=== PATIENT | female | born 1945 | race Caucasian/White ===

== ENCOUNTER 2018-04-20 05:12 | Inpatient (IN) | payer MEDICARE ==
[2018-04-20] MEDS ORDERED: diphenhydrAMINE 50 MG/ML VIAL ONE (05:30)
[2018-04-20] MEDS ORDERED: methylPREDNISolone Sod Succ/PF 125 MG/2 ML VIAL ONE (05:30)
[2018-04-20] MEDS ORDERED: Famotidine/PF 20 mg/2ml Vial ONE (05:31)
[2018-04-20] MEDS ORDERED: Propofol 1,000 MG/100 ML VIAL IV ONE (05:41)
[2018-04-20 06:06] LABS: #Basophils 0.1 thou/uL (0.0-0.2); #Eosinphils 0.2 thou/uL (0.0-0.7); #Lymphocytes 1.8 thou/uL (1.20-3.40); #Monocytes 0.5 thou/uL (0.11-0.59); #Neutrophils 3.6 thou/uL (1.40-6.50); %Eosinophils 2.9 % (0.0-10.0); %Monocytes 8.7 % (0.0-10.0); %Neutrophils 58.5 % (42.0-75.0); Hemoglobin 13.3 g/dL (12.0-16.0); Mean Corpuscular HGB CONC 32.7 g/dL (32.0-36.0); Mean Corpuscular Hemoglobin 30.5 pg (27.0-31.0); Mean Corpuscular Volume 93.2 fL (78.0-98.0); Mean Platelet Volume 7.1 fL (7.4-10.4); Platelet Count 240 thou/uL (130-400); RBC Distribution Width 12.7 % (11.5-14.5); Red Blood Cell (RBC) Count 4.34 mill/uL (4.20-5.40); White Blood Cell (WBC) Count 6.2 thou/uL (4.8-10.8)
[2018-04-20] MEDS ORDERED: CCU Electrolyte Replacement 1 EACH IVPB ONE (06:14)
[2018-04-20] MEDS ORDERED: Nitroglycerin 50 MG/250 ML BOT 250 ML IVPB PRN (06:14)
[2018-04-20] MEDS ORDERED: Norepinephrine 8 MG/0.9% NS 250 ML IVPB PRN (06:14)
[2018-04-20 06:15] LABS: ALT (SGPT) 23 U/L (8-55); AST (SGOT) 26 U/L (5-34); Albumin 4.5 g/dL (3.4-4.8); Alkaline Phosphatase 83 U/L (40-150); Anion Gap 15 mmol/L (10-20); BUN (Urea Nitrogen) 28 mg/dL (9.8-20.1); Bilirubin, Total 0.6 mg/dL (0.2-1.2); Calc. Creatinine Clearance 0 mL/min (70-130); Calcium 9.7 mg/dL (7.8-10.44); Carbon Dioxide 23 mmol/L (23-31); Chloride 104 mmol/L (98-107); Estimated GFR-MDRD 34; Globulin 3.8 g/dL (2.4-3.5); Glucose 118 mg/dL (83-110); Potassium 4.6 mmol/L (3.5-5.1); Protein, Total 8.3 g/dL (6.0-8.3); Sodium 137 mmol/L (136-145)
[2018-04-20] MEDS ORDERED: Ventilator Sedation Protocol 1 EACH FS SCH (06:15)
[2018-04-20 06:19] LABS: Actual Bicarbonate (HCO3a) 20.2 mEq/L (22-28); Analyzer IN Cardio ER; Base Excess (BEa) -3.4 mEq/L (-2.0 to +3.0); CO2 Tension 32.1 mmHg (35.0-45.0); Calcium, Ionized 1.13 mmol/L (1.12-1.30); Carboxyhemoglobin (COHb) 3.4 gm% (0.0-3.0); Hemoglobin (Hb) 13.1 g/dL (12.0-16.0); O2 Tension (PaO2) 126.7 mmHg (> 70.0); Potassium - ABG Lab 3.91 mmol/L (3.70-5.30); pH, Arterial 7.42 (7.35-7.45)
[2018-04-20 06:25] LABS: ALV-art Gradient 118.375 (0-20); Puncture Site LRA
[2018-04-20] MEDS ORDERED: Fentanyl BOLUS 250 ML IVPB PRN (06:27)
[2018-04-20] MEDS ORDERED: Lorazepam 2 MG/ML VIAL SLOW IVP PRN (06:27)
[2018-04-20] MEDS ORDERED: Potassium Phosphate 12 MMOL in Sodium Chloride 0.9% 250 ML 250 ML IV PRN (06:27)
[2018-04-20] MEDS ORDERED: fentaNYL Citrate/PF 2,000 MCG in Sodium Chloride 0.9% 60 ML IV SCH (06:27)
[2018-04-20] MEDS ORDERED: Potassium Phosphate 15 MMOL in Sodium Chloride 0.9% 250 ML 250 ML IV PRN (06:27)
[2018-04-20] MEDS ORDERED: Potassium Phosphate 9 MMOL in Sodium Chloride 0.9% 100 ML IVPB PRN (06:27)
[2018-04-20] MEDS ORDERED: DISCONTINUE PREVIOUS NARCOTIC PAIN MEDICATIONS AND BENZODIAZEPINES FS SCH (06:27)
[2018-04-20] MEDS ORDERED: Propofol BOLUS 1,000 MG/100 ML VIAL IV PRN (06:27)
[2018-04-20] MEDS ORDERED: Potassium Chloride 20 MEQ TAB PO PRN (06:27)
[2018-04-20] MEDS ORDERED: CCU ELECTROLYTE REPLACEMENT PROTOCOL FS PRN (06:27)
[2018-04-20] MEDS ORDERED: Magnesium Oxide 400 MG TAB PO PRN ×2 (06:27)
[2018-04-20] MEDS ORDERED: Potassium Chloride 40 MEQ in Premix Bag 1 BAG IVPB PRN (06:27)
[2018-04-20] MEDS ORDERED: Magnesium 2 GM/NS 0.9% 100 ML 2 GM in Premix Bag 1 BAG IVPB PRN (06:27)
[2018-04-20] MEDS ORDERED: Potassium Chloride 40 MEQ in Sodium Chloride 0.9% 250 ML 250 ML IVPB PRN (06:27)
[2018-04-20] MEDS ORDERED: Lorazepam 2 MG/ML VIAL ONE (07:18)
[2018-04-20] MEDS: Sodium Chloride 0.9% 1,000 ML IV SCH ×3 (07:54→21:14)
[2018-04-20] MEDS: Propofol 1,000 MG/100 ML VIAL IV PRN (07:55)
--- NOTE | 2018-04-20 08:21 | RAD ---
CHEST 1 VIEW: HISTORY: Dyspnea. FINDINGS: No comparison. Cardiac silhouette is magnified by projection. Pulmonary vasculature is slightly eng orged with patchy bibasilar infiltrates. The patient is slightly rotated leftward. The tip of an en dotracheal catheter overlies the thoracic inlet. Nasogastric tube descends to the abdomen. No evide nce of pneumothorax. IMPRESSION: 1. Mild bibasilar infiltrates favored to be related to pulmonary vascular congestion. 2. Endotracheal catheter is in good radiographic position. POS: DAYA
[2018-04-20] MEDS ORDERED: diphenhydrAMINE 25 MG in Sodium Chloride 0.9% 50 ML IVPB SCH (08:45)
[2018-04-20] MEDS: fentaNYL Citrate/PF 2,000 MCG in Sodium Chloride 0.9% 60 ML IV SCH (08:48)
[2018-04-20] MEDS ORDERED: Famotidine/PF 20 mg/2ml Vial SLOW IVP SCH (09:00)
--- NOTE | 2018-04-20 09:36 | CON ---
DATE OF CONSULTATION: 04/20/2018 HISTORY: This is a 2-year-old female who came to the ER yesterday apparently from [place] and was fou nd to have angioedema. She told the ER doctor she had some wasp stings yesterday. Tongue was marked ly swollen. They gave her 1 unit of FFP in the ER, she was intubated for progressive respiratory maxine lure as per the ER note requiring paralytics. She is presently agitated on Diprivan. We are about t o initiate fentanyl. No additional family members. She has a blood pressure medication which includ es lisinopril from Dr. Reta Talbert. We are trying to contact the pharmacy, they may have some addition al information on where she lives and family members. PAST MEDICAL HISTORY: Apparently pertinent for what sounds like hypertension. PAST SURGICAL HISTORY: Apparently have included a perforated ulcer that she has a laparotomy scar. Otherwise, no additional information. No history of tobacco abuse, alcohol abuse obtainable at this stage. REVIEW OF SYSTEMS: Unobtainable. PHYSICAL EXAMINATION: GENERAL: Sedated. Tongue is protruding from the mouth. VITAL SIGNS: Pulse 73, blood pressure 90/43, sats are 96%, respirations 14. CHEST: Decreased breath sounds, no wheezing. CARDIAC: Normal S1, S2. No gallops. ABDOMEN: Soft, no masses. LABORATORY AND X-RAY FINDINGS: Chest x-ray on admission was normal. PO2 is 126, pCO2 31.42, rate of 20, 40%. Total creatinine 1.49. IMPRESSION: 1. Patient is status post angioedema NICOLE related. I doubt this is secondary to wasp sting. That wo uld cause generalized angioedema, not just localized to the mouth and tongue. 2. Hypertension. 3. Renal failure. PLAN: Pepcid and Decadron will be initiated. Continue vent support, wean when angioedema resolves. 45 minutes critical care time.
[2018-04-20] MEDS: Enoxaparin Sodium 40 MG/0.4 ML SYRINGE SC SCH (09:52)
[2018-04-20] MEDS: Famotidine/PF 20 mg/2ml Vial SLOW IVP SCH ×2 (09:53→21:15)
[2018-04-20] MEDS: diphenhydrAMINE 12.5 MG/5 ML UDCUP PER TUBE SCH ×4 (10:17→21:15)
--- NOTE | 2018-04-20 11:41 | HP ---
DATE OF ADMISSION: 04/20/2018 PRIMARY CARE PHYSICIAN: Chelsie Jackson. CHIEF COMPLAINT: Tongue swelling. HISTORY OF PRESENTING ILLNESS: Ms. Landa is a 73-year-old female with past medical history of hyper tension who presented to the emergency room yesterday evening for complaints of swelling of the tongu e. History is mainly obtained by the chart review as the patient is currently intubated and no famil y is at bedside. Electronic medical records have been reviewed. According to the ER report, the patient came to the emergency room with swelling of the tongue. She reported that a wasp has bitten her 3:30 yesterday morning. She also reported taking lisinopril. Sh e reported that her tongue swelling has started and progressively is getting worse. She denies any f ever or chills to the ER physician. On presentation, she was hemodynamically stable with a blood pressure of 173/91 and oxygen saturation of 97% on room air, not showing any signs and symptoms of respiratory compromise initially she was g iven; however, in the emergency room, she reported worsening of the tongue swelling and the decision was made to intubate her empirically to avoid any respiratory compromise after the patient gave conse nt. She was intubated and sedated and paralyzed and is now being admitted to Critical Care Unit for further evaluation and care. Please note that the patient has been given 1 unit of FFP in the ER. PAST MEDICAL HISTORY: Hypertension. PAST SURGICAL HISTORY: History of perforated ulcer surgery. PSYCHIATRIC HISTORY: None. SOCIAL HISTORY: The patient denied any drug, tobacco or alcohol abuse prior to intubation. FAMILY HISTORY: Unobtainable as the patient is currently intubated and sedated. ALLERGIES: Listed as LISINOPRIL causing angioedema for the patient. I am not aware if this was done yesterday or she has a known history of allergy to LISINOPRIL in the past. CURRENT MEDICATIONS: Lisinopril. The patient has prescriptions not filled for amlodipine and metopr olol since July of this year. REVIEW OF SYSTEMS: Unobtainable as the patient is currently intubated and sedated. LABORATORY DATA AND IMAGING DATA: CBC is unremarkable. Serum chemistry shows BUN of 28, creatinine 1.49, blood sugar 118. ABGs after intubation showed pH of 7.42, pCO2 of 32, pO2 126. Chest x-ray by my review has no evidence to suggest any acute cardiopulmonary abnormality. Mild bibasilar infiltra héctor seen, however. Endotracheal tube is in good position. PHYSICAL EXAMINATION: VITAL SIGNS: Most recent vital signs; temperature 98.2, heart rate 82, blood pressure 103/55, satura ting 98% on ventilator. GENERAL: No acute distress. She is calm and sedated. HEENT: Examination show extreme swelling of her tongue, which is protruding out of her mouth. Pupil s are pinpoint and reactive to light bilaterally. Head is normocephalic, atraumatic. Sclera is anic teric. NECK: Supple without any lymphadenopathy, JVD or bruit. CHEST: Clear to auscultation without any wheezing, rales or rhonchi. Rate and rhythm is regular wit hout any murmur, rubs or gallops. ABDOMEN: Soft, nontender, nondistended with positive bowel sounds. EXTREMITIES: Free of any cyanosis, clubbing, or edema. NEUROLOGIC: Limited because of the sedated stage. IMPRESSION AND PLAN: 1. Swelling of the tongue at this time anaphylaxis due to wasp sting with or without angioedema whic h is age related is suspected. One or the other cannot be ruled out. She will be treated with H1 an tihistamines as well as Benadryl and steroids. She has received 50 mg of IV Benadryl and 20 mg of IV Pepcid with 125 mg of Solu-Medrol in the emergency room. I have been told by the pharmacy that we d o not have any IV Benadryl, so oral Benadryl rather tube by the Dobbhoff tube is initiated. She will be intubated until she can be safely extubated without respiratory compromise. Vent management as p er Pulmonary Critical Care team while she is in the CCU. She sees electrolyte protocol will be insti tuted. Continue on intravenous fluids. 2. Deep venous thrombosis and gastrointestinal prophylaxis. 3. Hypertension. Add p.r.n. antihypertensives. 4. Deep venous thrombosis and gastrointestinal prophylaxis. DISPOSITION: Mr. Landa is being admitted to the CCU for tongue swelling likely angioedema versus an aphylaxis versus both as above. Estimated length of stay is at least 2-3 midnights. Further managem ent will depend upon her clinical course. Please note that no family is available at bedside and emre sammy have tried to contact the family, but all of the numbers they have tried are either incorrect or they have not received any answer.
[2018-04-20] MEDS: Dexamethasone 4 mg/ml Vial SLOW IVP SCH ×2 (12:47→17:13)
[2018-04-21] MEDS: Dexamethasone 4 mg/ml Vial SLOW IVP SCH ×2 (00:31→06:34)
[2018-04-21] MEDS: fentaNYL Citrate/PF 2,000 MCG in Sodium Chloride 0.9% 60 ML IV SCH (03:30)
[2018-04-21] MEDS: Propofol 1,000 MG/100 ML VIAL IV PRN (03:35)
[2018-04-21 08:42] LABS: Actual Bicarbonate (HCO3a) 23.7 mEq/L (22-28); Base Excess (BEa) -2.9 mEq/L (-2.0 to +3.0); CO2 Tension 48.5 mmHg (35.0-45.0); Calcium, Ionized 1.15 mmol/L (1.12-1.30); Carboxyhemoglobin (COHb) 0.8 gm% (0.0-3.0); Hemoglobin (Hb) 12.8 g/dL (12.0-16.0); O2 Tension (PaO2) 92.2 mmHg (> 70.0); Potassium - ABG Lab 4.39 mmol/L (3.70-5.30); pH, Arterial 7.31 (7.35-7.45)
[2018-04-21] MEDS: Sodium Chloride 0.9% 1,000 ML IV SCH (08:47)
[2018-04-21] MEDS: Famotidine/PF 20 mg/2ml Vial SLOW IVP SCH (08:47)
[2018-04-21] MEDS: Enoxaparin Sodium 40 MG/0.4 ML SYRINGE SC SCH (08:47)
[2018-04-21 08:49] LABS: ALV-art Gradient 132.375 (0-20); Puncture Site RBA
[2018-04-21] MEDS ORDERED: DC Sedation Protocol FS ONE (09:01)
--- NOTE | 2018-04-21 11:16 | PRG ---
DATE OF SERVICE: 04/21/2018 SUBJECTIVE: Ms. Landa this morning is awake, alert, and responsive. Tongue is markedly less swolle n. PHYSICAL EXAMINATION: VITAL SIGNS: Blood pressure 107/65, pulse rate of . She has got a small air leak when the cuff is down. She is afebrile. MUSCULOSKELETAL: She moves all 4 extremities. CHEST: No wheezing or stridor. CARDIAC: Normal S1, S2, no gallops, no masses. LABORATORY DATA: PO2 is 92, pCO2 47 . IMPRESSION: Respiratory failure, angioedema, hypertension, history of bee sting. PLAN: Wean and extubate today. Continue observation in the ICU for another 24 hours. PT, supportive care and nutrition. One-half hour critical care time.
[2018-04-21] MEDS ORDERED: Nicotine 21 MG PATCH TD SCH (12:00)
--- NOTE | 2018-04-21 16:50 | PDOC.PN ---
- Subjective Encounter Start Date: 04/21/18 Encounter Start Time: 10:20 Pt seen for followup re: anaphylaxis. Intubated, unable to complete ROS. - Objective MAR Reviewed: Yes Vital Signs & Weight: Vital Signs (12 hours) Temp Pulse Resp BP BP Pulse Ox 04/21/18 12:55 97 04/21/18 12:52 98.5 F 77 20 177/78 H 97 04/21/18 12:00 97 04/21/18 09:00 78 19 93 L 04/21/18 08:23 75 107/64 04/21/18 08:00 16 98 04/21/18 07:00 98.7 F 04/21/18 06:00 10 L Weight Admit Weight 211 lb 3.245 oz Weight 209 lb 14.081 oz Most Recent Monitor Data Heart Rate from ECG 78 NIBP 178/88 NIBP BP-Mean 118 Respiration from ECG 17 SpO2 96 I&O: 04/20/18 04/21/18 04/22/18 06:59 06:59 06:59 Intake Total 2375.7 25.2 Output Total 1330 185 Balance 1045.7 -159.8 Result Diagrams: 04/20/18 05:27 04/20/18 05:27 EKG Reviewed by me: Yes (Tele: NSR) Phys Exam - Physical Examination Obese HEENT: moist MMs ETT Respiratory: clear to auscultation bilateral Cardiovascular: RRR Gastrointestinal: soft Neurological: moves all 4 limbs Deviation from normal: Unable to assess Dx/Plan (1) Anaphylaxis Code(s): T78.2XXA - ANAPHYLACTIC SHOCK, UNSPECIFIED, INITIAL ENCOUNTER Status : Acute Comment: anaphylaxis vs angioedema. Currently on H1 and H2 blockers and steroids. (2) Tobacco abuse Code(s): Z72.0 - TOBACCO USE Status: Chronic (3) SAMPSON (acute kidney injury) Code(s): N17.9 - ACUTE KIDNEY FAILURE, UNSPECIFIED Status: Acute Comment: recheck creatinine in AM (4) HTN (hypertension) Code(s): I10 - ESSENTIAL (PRIMARY) HYPERTENSION Status: Chronic Comment: Resume home medications except for lisinopril, monitor vital signs and titrate antihypertensives as needed. - Plan * . Review of Systems - Medications/Allergies Allergies/Adverse Reactions: Allergies Allergy/AdvReac Type Severity Reaction Status Date / Time lisinopril Allergy Verified 04/20/18 06:07 Medications: Current Medications Enoxaparin Sodium (Lovenox) 40 mg SC 0900 JUAN C Last Admin: 04/21/18 08:47 Dose: Not Given Norepinephrine Bitartrate (Levophed) 250 mls @ 0 mls/hr IVPB PRN PRN; Protocol PRN Reason: To maintain MAP > 65 Nitroglycerin/Dextrose (Nitroglycerin 50 Mg/250 Ml Bot) 250 mls @ 0 mls/hr IVPB PRN PRN; Protocol PRN Reason: To maintain SBP < 140 Potassium Chloride 40 meq/ (Sodium Chloride) 270 mls @ 135 mls/hr IVPB ASDIR PRN PRN Reason: FOR SERUM K+ 2.5 - 3.5 Potassium Chloride 40 meq/ (Device) 100 mls @ 50 mls/hr IVPB ASDIR PRN PRN Reason: FOR SERUM K+ 2.5 - 3.5 Magnesium Sulfate 1 gm/ Sodium (Chloride) 102 mls @ 102 mls/hr IV PRN PRN PRN Reason: MAG LEVEL 1.4 - 2.0 Magnesium Sulfate 2 gm/ Device 100 mls @ 100 mls/hr IVPB ASDIR PRN PRN Reason: MAGNESIUM < 1.4 Potassium Phosphate 9 mmol/ (Sodium Chloride) 103 mls @ 25.75 mls/hr IVPB ASDIR PRN PRN Reason: Phosphate 1.0-1.8 Potassium Phosphate 12 mmol/ (Sodium Chloride) 254 mls @ 63.5 mls/hr IV ASDIR PRN PRN Reason: Serum phosphate 0.5-0.9 Potassium Phosphate 15 mmol/ (Sodium Chloride) 255 mls @ 63.75 mls/hr IV ASDIR PRN PRN Reason: Serum Phos < 0.5 Magnesium Oxide (Magnesium Oxide) 400 mg PO BIDPRN PRN PRN Reason: FOR SERUM MAG 1.4 - 2.0 Magnesium Oxide (Magnesium Oxide) 800 mg PO PRN PRN PRN Reason: FOR SERUM MAG < 1.4 Miscellaneous Medication (Phos-Nak) 1 pkt PO TIDPRN PRN PRN Reason: FOR PHOS LEVEL 1.0 - 1.8 Miscellaneous Medication (Phos-Nak) 2 pkt PO TIDPRN PRN PRN Reason: FOR PHOS LEVEL 0.5 - 1.0 Nicotine (Nicoderm Patch) 21 mg TD 1200 [facility] Last Admin: 04/21/18 12:29 Dose: 21 mg Ccu Electrolyte (Replacement Protocol) 0 each FS PRN PRN PRN Reason: FOR ELECTROLYTE REPLACEMENT Potassium Chloride (K-Dur) 40 meq PO ASDIR PRN PRN Reason: FOR SERUM K+ 2.5 - 3.5 Potassium Chloride (Klor-Con) 40 meq PER TUBE ASDIR PRN PRN Reason: FOR SERUM K+ 2.5-3.5 Sodium Chloride (Flush - Normal Saline) 10 ml IVF Q12HR [facility] Last Admin: 04/21/18 08:48 Dose: 10 ml Sodium Chloride (Flush - Normal Saline) 10 ml IVF PRN PRN PRN Reason: Saline Flush Last Admin: 04/21/18 06:36 Dose: 10 ml
[2018-04-21] MEDS ORDERED: cloNIDine 0.1 MG TAB PO PRN (16:52)
[2018-04-21] MEDS: Metoprolol Tartrate 50 MG TAB PO SCH (19:12)
[2018-04-22 04:50] LABS: #Basophils 0.1 thou/uL (0.0-0.2); #Eosinphils 0.1 thou/uL (0.0-0.7); #Monocytes 0.9 thou/uL (0.11-0.59); #Neutrophils 7.8 thou/uL (1.40-6.50); %Basophils 0.6 % (0.0-1.0); %Eosinophils 0.5 % (0.0-10.0); %Lymphocytes 18.9 % (21.0-51.0); %Monocytes 8.1 % (0.0-10.0); %Neutrophils 71.9 % (42.0-75.0); Hemoglobin 11.5 g/dL (12.0-16.0); Mean Corpuscular HGB CONC 33.1 g/dL (32.0-36.0); Mean Corpuscular Hemoglobin 30.8 pg (27.0-31.0); Mean Corpuscular Volume 92.9 fL (78.0-98.0); Platelet Count 185 thou/uL (130-400); RBC Distribution Width 12.6 % (11.5-14.5); Red Blood Cell (RBC) Count 3.74 mill/uL (4.20-5.40); White Blood Cell (WBC) Count 10.8 thou/uL (4.8-10.8)
[2018-04-22 05:01] LABS: Anion Gap 12 mmol/L (10-20); BUN (Urea Nitrogen) 21 mg/dL (9.8-20.1); Calc. Creatinine Clearance 71 mL/min (70-130); Calcium 8.9 mg/dL (7.8-10.44); Carbon Dioxide 22 mmol/L (23-31); Chloride 108 mmol/L (98-107); Estimated GFR-MDRD 49; Glucose 114 mg/dL (83-110); Potassium 3.5 mmol/L (3.5-5.1); Sodium 138 mmol/L (136-145)
[2018-04-22] MEDS: Enoxaparin Sodium 40 MG/0.4 ML SYRINGE SC SCH (08:28)
[2018-04-22] MEDS: Metoprolol Tartrate 50 MG TAB PO SCH (08:29)
[2018-04-22] MEDS ORDERED: Amlodipine 5 MG TAB PO SCH (09:00)
[2018-04-22] MEDS ORDERED: Hydrochlorothiazide 25 MG TAB PO SCH (09:00)
[2018-04-22 12:03] VITALS: BP 147/81; TEMP 98.9
--- NOTE | 2018-04-22 12:37 | PRG ---
DATE OF SERVICE: 04/22/2018 SUBJECTIVE: This morning, she is awake, alert and responsive. OBJECTIVE: VITAL SIGNS: Sats are 98% on room air, blood pressure 151/68, temperature 98, respiratory rate 18. CHEST: Reveals no wheezing. No crackles. CARDIAC: Normal S1, S2. No gallops. ABDOMEN: No masses. LABORATORY DATA: Electrolytes are normal. CBC . IMPRESSION: 1. Respiratory failure. 2. Angioedema. 3. Hypertension. 4. Probably chronic obstructive pulmonary disease. 5. Probably sleep apnea. PLAN: She can be discharged home followed by primary care physician. She can see me in the of fice as needed.
--- NOTE | 2018-04-22 18:05 | DIS ---
PRIMARY CARE PROVIDER: Fiorella Talbert DATE OF ADMISSION: 04/20/2018 DATE OF DISCHARGE: 04/22/2018 DISCHARGE DIAGNOSES: 1. Angioedema, likely related to use of NICOLE inhibitors. 2. Probable anaphylaxis secondary to wasp sting. CONDITION OF PATIENT ON THE DAY OF DISCHARGE: Stable. I assessed Ms. Landa on the day of discharge . She denies any chest pain or shortness of breath. Vital signs are stable. S1 and S2 are heard, r egular. Lungs are clear to auscultation bilaterally. CONSULTATIONS DURING THIS HOSPITALIZATION: Pulmonology, Dr. Siegel. DISCHARGE MEDICATIONS: NICOLE inhibitor has been discontinued. She is being discharged on amlodipine 5 mg daily, metoprolol tartrate 50 mg 2 times a day, hydrochlorothiazide 12.5 mg daily, nicotine 21 mg patch daily, and clonidine 0.1 mg at bedtime as needed. She will check with her primary care provid er to see which ones she should take. HOSPITAL COURSE: Ms. Landa is a pleasant 73-year-old lady, who was admitted to [facility] for respiratory failure secondary to angioedema and possible anaphylaxis. She was intu bated and admitted to CCU. Please refer to Dr. Fuentes's history and physical note dated 04/20/2018 for further details. She received steroids and H2 blockers in the emergency room and CCU. She improved clinically and was extubated on 04/21/2018. She is being discharged home in a stable condition. She has been advised to stop smoking. On the day of discharge, she has sodium 138, potassium 3.5, creatinine 1.09, white count 10,800, hemo globin 11.5, and platelet count 185,000. Many thanks for allowing me to participate in your patient's care. Please feel free to contact me wi th any questions or concerns. DISCHARGE DESTINATION: Home. TOTAL AMOUNT OF TIME SPENT COORDINATING THIS DISCHARGE: 33 minutes.
== END 2018-04-22 12:10 | disposition home or self-care (01) | DRG 915 ==
LOC: ERS 05:12 → CCU 06:00 → T4-A 04-21 12:45
PROVIDERS: ADMIT Internal Medicine; ATTEND Internal Medicine
PROC: 0BH17EZ Insertion of Endotracheal Airway into Trachea, Via Natural or Artificial Opening (ICD-10-PCS; principal; 2018-04-20)
PROC: 5A1935Z Respiratory Ventilation, Less than 24 Consecutive Hours (ICD-10-PCS; 2018-04-20)
PROC: 30233K1 Transfusion of Nonautologous Frozen Plasma into Peripheral Vein, Percutaneous Approach (ICD-10-PCS; 2018-04-20)
DX: T78.3XXA Angioneurotic edema, initial encounter (principal); J96.90 Respiratory failure, unspecified, unspecified whether with hypoxia or hypercapnia; T78.2XXA Anaphylactic shock, unspecified, initial encounter; N17.9 Acute kidney failure, unspecified; T63.461A Toxic effect of venom of wasps, accidental (unintentional), initial encounter; X58.XXXA Exposure to other specified factors, initial encounter; I10 Essential (primary) hypertension; J44.9 Chronic obstructive pulmonary disease, unspecified; G47.30 Sleep apnea, unspecified
CPT/HCPCS: 31500; 36415; 36430; 51702; 71045; 80048; 80053; 82805; 84443; 85025; 86850; 86900; 86901; 94002; 94003; 96365; 96375; A4216; J1100; J1200; J1650; J2060; J2704; J2930; J3010; J7050; P9059; S0028

== ENCOUNTER 2019-01-18 15:32 | Emergency (ER) | payer MEDICARE ==
--- NOTE | 2019-01-18 15:48 | RAD ---
EXAM: 3 views of the left wrist HISTORY: Wrist pain after pushing a brush COMPARISON: None FINDINGS: 3 views of the left wrist shows a minimally displaced fracture of the distal radial metaphy sis which is extra-articular. Moderate diffuse soft tissue swelling is seen. No degenerative changes are present. IMPRESSION: Distal left radius fracture
[2019-01-18] MEDS ORDERED: HYDROcodone/Acetaminophen 7.5/325 mg Tablet ONE (16:14)
[2019-01-18] MEDS ORDERED: cloNIDine 0.1 MG TAB ONE (16:32)
[2019-01-18] MEDS ORDERED: Morphine 4 MG/ML VIAL ONE (16:32)
[2019-01-18] MEDS ORDERED: HYDROcodone/Acetaminophen 5/325 mg Tablet ONE (18:53)
== END 2019-01-18 19:02 | disposition home or self-care (01) ==
LOC: ERS 15:32
DX: S52.502A Unspecified fracture of the lower end of left radius, initial encounter for closed fracture (principal); I10 Essential (primary) hypertension; W19.XXXA Unspecified fall, initial encounter
CPT/HCPCS: 96372; J2270